=== PATIENT | female | born 1985 | race Caucasian/White ===

== ENCOUNTER 2020-03-20 10:56 | Emergency (ER) | payer MEDICAID ==
[~2020-03-20] VITALS: Ht 157.5 cm; Wt 68.2 kg
[2020-03-20] MEDS ORDERED: thiamine 100mg tablet PO ONE (11:50)
[2020-03-20] MEDS ORDERED: folic acid 1mg tablet PO ONE (11:50)
[2020-03-20] MEDS ORDERED: ondansetron/PF 4mg/2ml inj IV ONE (11:50)
[2020-03-20] MEDS ORDERED: normal saline 1000ML IV soln IVB ONE (11:50)
[2020-03-20] MEDS ORDERED: LORazepam 2 mg/ml vial IV ONE (11:50)
[2020-03-20 11:51] VITALS: BP 104/72
[2020-03-20] MEDS ORDERED: ondansetron 4mg rapidly disintigrating tab PO ONE (12:20)
[2020-03-20] MEDS ORDERED: LORazepam 1 MG tablet PO ONE (12:20)
[2020-03-20 12:31] LABS: BASOPHILS # (AUTO) 0.1 X10'3 (0-0.2); BASOPHILS % (AUTO) 1.2 % (0-1); EOSINOPHILS # (AUTO) 0.1 X10'3 (0-0.9); EOSINOPHILS % (AUTO) 1.3 % (0-6); HEMATOCRIT 50.3 % (35.0-45.0); HEMOGLOBIN 17.1 g/dl (12.0-16.0); LYMPHOCYTES # (AUTO) 1.9 X10'3 (1.1-4.8); LYMPHOCYTES % (AUTO) 28.3 % (21-51); MEAN CORPUSCULAR HEMOGLOBIN 31.6 PG (27.0-31.0); MEAN CORPUSCULAR HGB CONC 33.9 g/dL (33.0-36.5); MEAN CORPUSCULAR VOLUME 93.1 FL (78-98); MEAN PLATELET VOLUME 8.3 FL (7.4-10.4); MONOCYTES # (AUTO) 0.7 X10'3 (0-0.9); MONOCYTES % (AUTO) 10.8 % (2-12); NEUTROPHILS # (AUTO) 3.9 X10'3 (1.8-7.7); NEUTROPHILS % (AUTO) 58.4 % (42-75); PLATELET COUNT 364 X10'3 (140-440); RED CELL DISTRIBUTION WIDTH 18.2 % (11.5-14.5); WHITE BLOOD COUNT 6.8 X10'3 (4.5-11.0)
[2020-03-20 12:38] LABS: PARTIAL THROMBOPLASTIN TIME 25 SECONDS (22-32)
[2020-03-20 12:40] LABS: ALANINE AMINOTRANSFERASE 78 U/L (12-78); ALBUMIN 3.9 G/DL (3.4-5.0); ALBUMIN/GLOBULIN RATIO 1.1 (1.1-1.5); ALKALINE PHOSPHATASE 108 IU/L (46-116); ANION GAP 13 (8-16); ASPARTATE AMINO TRANSFERASE 70 U/L (10-37); BILIRUBIN,TOTAL 0.3 MG/DL (0.1-1.0); BLOOD UREA NITROGEN 3 MG/DL (7-18); BUN/CREATININE RATIO 4.4 (6.6-38.0); CALCIUM 9.3 MG/DL (8.5-10.1); CHLORIDE 104 MMOL/L (99-107); CREATININE 0.68 MG/DL (0.40-0.90); ETHANOL 0.226 GM/DL (0.0-0.010); GLUCOSE 105 MG/DL (70-104); LIPASE 284 U/L (73-393); POTASSIUM 3.1 MMOL/L (3.5-5.1); SODIUM 143 MMOL/L (135-145); TOTAL CARBON DIOXIDE 25.6 MMOL/L (24-32); TOTAL PROTEIN 7.6 G/DL (6.4-8.2); eGFR > 90 ML/MIN
--- NOTE | 2020-03-20 12:42 | NUR ---
This patient came in for ETOH withdraw symptoms. She drinks a pint of alcohol a day. She reported that her boyfriend witnessed her having seizures. We did a full work up including a head CT on her because it was unknown if she may have fallen. We have little information about the "seizures" being repoted by her boyfriend. RN went to treat the patient with PO medications and pt. stated she no longer wanted to be treated, that she just needed to go home and drink. PA spoke to patient about the risk of leaving up to with patient. Is refusing all medications. She has been educated on the risk of detoxing at home, and the risks of her continuing to drink. Pt. was also educated on seizures. Labs have been completed, but she is refusing other medical interventions at this time.
[2020-03-20 12:56] LABS: URINE HCG NEGATIVE (NEG)
[2020-03-20 12:58] LABS: CLARITY,URINE CLEAR (Clear); COLOR,URINE YELLOW (Yellow); GLUCOSE, URINE NEGATIVE (Neg); KETONES,URINE TRACE mg/dl (Neg); LEUKOCYTE ESTERASE ,URINE TRACE (Neg); NITRITES, URINE NEGATIVE (Neg); OCCULT BLOOD,URINE NEGATIVE (Neg); PH,URINE 7.5 (4.8-8.0); PROTEIN,URINE NEGATIVE (Neg); UROBILINOGEN,URINE 0.2 E.U/dL (0.2-1.0)
[2020-03-20 12:59] LABS: UA COLLECTION TYPE CLN CATCH MIDSTREAM
[2020-03-20 13:08] LABS: FINE GRANULAR CAST 0-3 /LPF (NEGATIVE)
[2020-03-20 13:09] LABS: SQUAMOUS EPITHELIAL CELL,UR FEW /LPF (FEW)
[2020-03-20 13:10] LABS: MUCUS STRANDS FEW /LPF (Neg); URINE AMPHETAMINE SCREEN POSITIVE (Neg); URINE BARBITUATE SCREEN NEGATIVE (Neg); URINE BENZODIAZEPINES SCREEN NEGATIVE (Neg); URINE CANNABINOID SCREEN NEGATIVE (Neg); URINE COCAINE SCREEN NEGATIVE (Neg); URINE METHADONE SCREEN NEGATIVE (Neg); URINE OPIATE SCREEN NEGATIVE (Neg); URINE PHENCYCLIDINE SCREEN NEGATIVE (Neg)
[2020-03-20 13:11] LABS: BACTERIA,URINE FEW /HPF (Neg); RBC,URINE NONE SEEN /HPF (0-2); RENAL CELLS, URINE FEW /HPF; WBC,URINE 0-4 /HPF (0-4)
== END 2020-03-20 13:23 | disposition home or self-care (01) ==
LOC: ER 10:58
DX: F10.239 Alcohol dependence with withdrawal, unspecified (principal); R11.2 Nausea with vomiting, unspecified; R10.11 Right upper quadrant pain; R53.1 Weakness; R68.83 Chills (without fever)
CPT/HCPCS: 36415; 70450; 80053; 80305; 80320; 81001; 81025; 83690; 85025; 85610; 85730; 87088; 93005; 99284; 99285

== ENCOUNTER 2021-06-08 01:45 | Emergency (ER) | payer MEDICAID ==
[~2021-06-08] VITALS: Ht 157.5 cm; Wt 63.6 kg
[2021-06-08 01:48] VITALS: BP 110/78
== END 2021-06-08 05:31 | disposition left against medical advice (07) ==
LOC: ER 01:45
DX: R06.02 Shortness of breath (principal); Z53.21 Procedure and treatment not carried out due to patient leaving prior to being seen by health care provider
CPT/HCPCS: 93005

== ENCOUNTER → 2021-10-19 | Emergency (ER) | payer MEDICAID ==
[~2021-10-19] VITALS: Ht 157.5 cm; Wt 63.0 kg
[2021-10-19 19:16] VITALS: BP 149/78
== END | disposition left against medical advice (07) ==
LOC: ER 19:03
DX: R42 Dizziness and giddiness (principal); R53.1 Weakness; Z53.21 Procedure and treatment not carried out due to patient leaving prior to being seen by health care provider
CPT/HCPCS: 93005

== ENCOUNTER 2022-08-18 04:39 | Emergency (ER) | payer MEDICAID ==
[~2022-08-18] VITALS: Ht 157.5 cm; Wt 65.9 kg
[2022-08-18 04:45] VITALS: BP 117/86
--- NOTE | 2022-08-18 04:54 | NUR ---
doppler unable to detect heart tones.
== END 2022-08-18 05:26 ==
LOC: ER 04:40
DX: Z00.8 Encounter for other general examination (principal); O26.90 Pregnancy related conditions, unspecified, unspecified trimester; F15.90 Other stimulant use, unspecified, uncomplicated; Z72.89 Other problems related to lifestyle; Z3A.00 Weeks of gestation of pregnancy not specified
CPT/HCPCS: 99284